=== PATIENT | male | born 1935 | race Caucasian/White ===

== ENCOUNTER → 2021-06-11 08:03 | Outpatient (BNVA) | payer MEDICARE, OTHER, SELFPAY | PROVIDERS: Family Provider Family Medicine; Visit Provider Family Medicine | DX: I65.23 Occlusion and stenosis of bilateral carotid arteries (principal); I10 Essential (primary) hypertension; Z00.00 Encounter for general adult medical examination without abnormal findings; E78.5 Hyperlipidemia, unspecified | CPT/HCPCS: 80053; 80061; 85025 ==

== ENCOUNTER → 2022-06-13 08:09 | Outpatient (BNVA) | payer MEDICARE, OTHER, SELFPAY | PROVIDERS: Family Provider Family Medicine; PCP Family Medicine; Visit Provider Family Medicine | DX: E78.5 Hyperlipidemia, unspecified (principal); I10 Essential (primary) hypertension | CPT/HCPCS: 80053; 80061; 85025 ==

== ENCOUNTER 2023-06-13 07:57 | Outpatient (CLI) | payer MEDICARE, SELFPAY ==
--- NOTE | 2023-06-13 08:02 | XRR_ITS ---
PROCEDURE INFORMATION: Exam: XR Right Knee Exam date and time: 06/13/2023 8:08 AM Age: 87 years old Clinical indication: Pain; Knee; Right; Additional info: Knee pain TECHNIQUE: Imaging protocol: Radiologic exam of the right knee. Views: 1 or 2 views. COMPARISON: No relevant prior studies available. FINDINGS: Bones/joints: Mild tricompartmental joint space narrowing. Thickening and heterogeneity of the patellar tendon. Soft tissues: Thickening of the anterior soft tissues over the patella Vasculature: Scattered foci of calcified atherosclerotic disease. XR/XR knee RT 1-2V 95963 IMPRESSION: 1. No acute or aggressive osseous abnormality. 2. Suggestion of possible patellar tendinosis/tendinitis with possible prepatellar bursitis. Correlate with clinical history and physical exam.
[2023-06-13 08:18] LABS: Basophils # 0.1 10^3/uL (0.0-0.1); Basophils % 0.9 %; Eosinophils # 0.1 10^3/uL (0.0-0.8); Eosinophils % 2.1 %; Hematocrit 43.3 % (37-53); Lymphocytes # 1.9 10^3/uL (0.8-4.8); Mean Corpuscular HGB Conc 32.6 g/dL (30-55); Mean Corpuscular Volume 85.9 fl (82-101); Mean Platelet Volume 9.2 fL (7.4-10.4); Monocytes # 0.5 10^3/uL (0.2-0.9); Monocytes % 7.9 %; Neutrophils % 56.6 %; Nucleated Red Blood Cells % 0 %; Platelet Count 206 10^3/cmm (157-399); Red Blood Count 5.04 10^6/uL (3.85-5.65); Red Cell Distribution Width 13.8 % (12.1-15.1); White Blood Count 5.82 10^3/uL (3.29-11.43)
[2023-06-13 08:40] LABS: Alanine Aminotransferase 12 U/L (0-41); Albumin Level 4.2 g/dL (3.5-5.2); Alkaline Phosphatase 67 U/L (40-130); Anion Gap 13.8 (5-19); Aspartate Amino Transferase 13 U/L (0-40); Blood Urea Nitrogen 21 mg/dL (8-23); Calcium 9.4 mg/dL (8.5-10.5); Carbon Dioxide 27 mmol/L (22-29); Chloride 104 mmol/L (98-107); Cholesterol 159 mg/dL (0-200); Globulin 2.9 g/dL (1.3-4.6); Glucose 94 mg/dL (65-115); HDL Cholesterol 53 mg/dL (60-100); LDL Cholesterol Calculated 92 mg/dL (50-129); LDL HDL Ratio 1.74 RATIO (0.00-3.22); Osmolality Calculated 293 mOsm/kg (285-295); Potassium 4.8 mmol/L (3.5-5.1); Sodium 140 mmol/L (136-145); Total Bilirubin 0.4 mg/dL (0.15-1.2); Total Protein 7.1 g/dL (6.6-8.7); Triglycerides 71 mg/dL (0-150)
== END 2023-06-13 07:58 | disposition home or self-care (01) ==
LOC: LAB 08:00
PROVIDERS: Family Provider Family Medicine; PCP Family Medicine; Visit Provider Family Medicine
DX: M17.11 Unilateral primary osteoarthritis, right knee (principal); I10 Essential (primary) hypertension; E78.5 Hyperlipidemia, unspecified
CPT/HCPCS: 36415; 73560; 80053; 80061; 85025

== ENCOUNTER → 2024-02-08 09:08 | Outpatient (BNVA) | payer MEDICARE, SELFPAY | PROVIDERS: Family Provider Family Medicine; PCP Family Medicine; Visit Provider Family Medicine | DX: R30.0 Dysuria (principal) | CPT/HCPCS: 81000; 87086 ==

== ENCOUNTER → 2024-02-19 13:25 | Outpatient (BNVA) | payer MEDICARE, SELFPAY | PROVIDERS: Family Provider Family Medicine; PCP Family Medicine; Visit Provider Family Medicine | DX: R32 Unspecified urinary incontinence (principal); N41.0 Acute prostatitis | CPT/HCPCS: 81000 ==

== ENCOUNTER → 2024-03-26 10:03 | Outpatient (BNVA) | payer MEDICARE, SELFPAY | PROVIDERS: Family Provider Family Medicine; PCP Family Medicine; Visit Provider Family Medicine | DX: L98.9 Disorder of the skin and subcutaneous tissue, unspecified (principal) | CPT/HCPCS: 88305 ==

== ENCOUNTER → 2024-06-06 09:08 | Outpatient (BNVA) | payer MEDICARE, SELFPAY | PROVIDERS: Family Provider Family Medicine; PCP Family Medicine; Visit Provider Family Medicine | DX: I10 Essential (primary) hypertension (principal); E78.5 Hyperlipidemia, unspecified | CPT/HCPCS: 80053; 80061 ==

== ENCOUNTER → 2024-09-16 15:36 | Outpatient (BNVA) | payer MEDICARE, SELFPAY | PROVIDERS: Family Provider Family Medicine; PCP Family Medicine; Visit Provider Family Medicine | DX: R30.0 Dysuria (principal); R32 Unspecified urinary incontinence | CPT/HCPCS: 81000; 87086 ==

== ENCOUNTER 2024-10-14 13:39 | Emergency (ER) | payer MEDICARE, SELFPAY ==
--- NOTE | 2024-10-14 13:37 | ECG_ITS ---
[facility] Test Date: 2024-10-14 Pat Name: Bayron Ansari Department: Room: Gender: Male Scheduling Coordinator: : 1935 Requested By: Dayana Love Order Number: [id number] Nye MD: Gerard Posey M.D. Measurements Intervals [place]te Rate: 71 P: 47 CT: 157 QRS: 29 QRSD: 89 T: 26 QT: 381 QTc: 417 Interpretive Statements SINUS RHYTHM LOW QRS VOLTAGE IN PRECORDIAL LEADS [QRS DEFLECTION < 1.0 mV IN CHEST LEADS] No previous ECG available for comparison Electronically Signed On 10-16-2024 20:33:26 CDT by Gerard Posey M.D. [email or web address]
[2024-10-14 13:43] VITALS: BP 105/57; PULSE 67; TEMP 36.4; O2SAT 98
[2024-10-14 13:57] LABS: Hematocrit 38.5 % (37-53); Hemoglobin 12.70 g/dL (11.27-16.99); Mean Corpuscular HGB Conc 33.0 g/dL (30-55); Mean Corpuscular Hemoglobin 28.4 pg (27-33); Mean Corpuscular Volume 86.1 fl (82-101); Nucleated Red Blood Cells % 0 %; Platelet Count 212 10^3/cmm (157-399); Red Blood Count 4.47 10^6/uL (3.85-5.65); White Blood Count 6.12 10^3/uL (3.29-11.43)
[2024-10-14 14:16] LABS: Troponin(5th) Baseline 16 ng/L (0-15)
[2024-10-14 14:25] LABS: Alanine Aminotransferase 10 U/L (0-41); Albumin Level 4.4 g/dL (3.5-5.2); Alkaline Phosphatase 78 U/L (40-130); Anion Gap 15.0 (5-19); Aspartate Amino Transferase 13 U/L (0-40); Blood Urea Nitrogen 22 mg/dL (8-23); Calcium 9.3 mg/dL (8.5-10.5); Carbon Dioxide 24 mmol/L (22-29); Chloride 104 mmol/L (98-107); Creatinine Clr Calc Pharmacy 37.3568; Globulin 2.4 g/dL (1.3-4.6); Glucose 102 mg/dL (65-115); Osmolality Calculated 292 mOsm/kg (285-295); Potassium 4.0 mmol/L (3.5-5.1); Sodium 139 mmol/L (136-145); Total Protein 6.8 g/dL (6.6-8.7)
--- NOTE | 2024-10-14 15:42 | ECG_ITS ---
[facility] Test Date: 2024-10-14 Pat Name: Bayron Ansari Department: Room: Gender: Male Principal Engineer: : 1935 Requested By: Dayana Love Order Number: [id number] Popeye MD: Gerard Posey M.D. Measurements Intervals [place] Rate: 61 P: 60 [place]: 175 QRS: 24 QRSD: 99 T: 40 QT: 403 QTc: 409 Interpretive Statements SINUS RHYTHM LOW QRS VOLTAGE IN PRECORDIAL LEADS [QRS DEFLECTION < 1.0 mV IN CHEST LEADS] Compared to ECG 10/14/2024 13:51:36 No significant changes Electronically Signed On 10-16-2024 23:01:34 CDT by Gerard Posey M.D. [email or web address]
[2024-10-14 15:47] VITALS: BP 142/78; PULSE 66; O2SAT 98
--- NOTE | 2024-10-14 16:17 | W.ED.SYNCOPE ---
HPI - Syncope General: Chief Complaint: Syncope Stated Complaint: syncopal episode History of Present Illness: 89-year-old man with a history of BPH, stroke, hypertension and hyperlipidemia who presents emergency room after having a syncopal episode. Related Data Home Medications ?Medication ?Instructions ?Recorded ?Confirmed aspirin 325 mg tablet 325 mg PO DAILY 12/14/21 09/16/24 Previous Rx's ?Medication ?Instructions ?Recorded lisinopril 10 mg tablet 10 mg PO DAILY #90 tabs 12/13/23 atorvastatin 20 mg tablet See Rx Instructions .Route 02/07/24 .COMPLEX #90 tabs tamsulosin 0.4 mg capsule 0.4 mg PO .every other day #30 caps 09/16/24 Allergies Allergy/AdvReac Type Severity Reaction Status Date / Time tamsulosin (From Flomax) Allergy syncope Verified 10/14/24 13:57 beet AdvReac Intermediate Unknown Verified 10/14/24 13:57 venom-wasp AdvReac Intermediate Unknown Verified 10/14/24 13:57 [facility] PFSH: Medical History Hx of completed stroke Osteoarthritis of right knee Hyperlipidemia Hypertension Social History Smoking and tobacco/nicotine status: never used tobacco/nicotine Course Vital Signs: Vital signs: Vital Signs Temperature 97.5 F L 10/14/24 13:43 Pulse Rate 66 10/14/24 15:47 Blood Pressure 142/78 10/14/24 15:47 Pulse Oximetry 98 10/14/24 15:47 Oxygen Delivery Me thod Room Air 10/14/24 15:47 MDM - Syncope Medical Decision Making Medical decision making: Differential diagnosis including but not limited to and based on the above HPI, review of systems and physical exam in this patient with syncope: Vasovagal, orthostatics hypotension, cardiac dysrhythmia, myocardial infarction, infection and hypotension, Orders placed to evaluate differential diagnosis based on the above differential, HPI and physical exam EKG: Time 1351. Rate 71. Normal sinus rhythm, No ST-T changes, no ectopy, normal MT & QRS intervals, This was reviewed and interpreted by the ER physician at 1358 Repeat EKG: Time 1542. Rate 61. Normal sinus rhythm, No ST-T changes, no ectopy, normal MT & QRS intervals, This was reviewed and interpreted by the ER physician at 1548 Lab Review: Laboratory results were reviewed and interpreted by myself the emergency room physician. No leukocytosis. No anemia. Slight elevation of his BUN and creatinine over his baseline at 22 and 1.4 his baseline is normally 0.9-1.4. This would indicate some dehydration. I reviewed the patient's medical record. 89-year-old man with a history of BPH, stroke, hypertension and hyperlipidemia Reexamination: Lab Data 10/14/24 13:31 10/14/24 13:31 Laboratory Results WBC 6.12 10^3/uL (3.29-11.43) 10/14/24 13:31 RBC 4.47 10^6/uL (3.85-5.65) 10/14/24 13:31 Hgb 12.70 g/dL (11.27-16.99) 10/14/24 13:31 Hct 38.5 % (37-53) 10/14/24 13:31 MCV 86.1 fl (82-101) 10/14/24 13:31 MCH 28.4 pg (27-33) 10/14/24 13:31 MCHC 33.0 g/dL (30-55) 10/14/24 13:31 RDW 13.5 % (12.1-15.1) 10/14/24 13:31 Plt Count 212 10^3/cmm (157-399) 10/14/24 13:31 MPV 9.6 fL (7.4-10.4) 10/14/24 13:31 Neut % (Auto) 56.5 % 10/14/24 13:31 Lymph % (Auto) 34.2 % 10/14/24 13:31 Dickson % (Auto) 6.2 % 10/14/24 13:31 Eos % (Auto) 2.1 % 10/14/24 13:31 Baso % (Auto) 0.8 % 10/14/24 13:31 Neut # (Auto) 3.46 10^3/uL (1.8-7.7) 10/14/24 13:31 Lymph # (Auto) 2.1 10^3/uL (0.8-4.8) 10/14/24 13:31 Dickson # (Auto) 0.4 10^3/uL (0.2-0.9) 10/14/24 13:31 Eos # (Auto) 0.1 10^3/uL (0.0-0.8) 10/14/24 13:31 Baso # (Auto) 0.1 10^3/uL (0.0-0.1) 10/14/24 13:31 Nucleated RBC % (auto) 0 % 10/14/24 13:31 Nucleated RBCs # 0.0 /100WBC 10/14/24 13:31 Sodium 139 mmol/L (136-145) 10/14/24 13:31 Potassium 4.0 mmol/L (3.5-5.1) 10/14/24 13:31 Chloride 104 mmol/L (98-107) 10/14/24 13:31 Carbon Dioxide 24 mmol/L (22-29) 10/14/24 13:31 Anion Gap 15.0 (5-19) 10/14/24 13:31 BUN 22 mg/dL (8-23) 10/14/24 13:31 Creatinine 1.4 mg/dL (0.7-1.2) H 10/14/24 13:31 GFR Calculation Not Reportable 10/14/24 13:31 Glucose 102 mg/dL (65-115) 10/14/24 13:31 Calculated Osmolality 292 mOsm/kg (285-295) 10/14/24 13:31 Calcium 9.3 mg/dL (8.5-10.5) 10/14/24 13:31 Total Bilirubin 0.5 mg/dL (0.15-1.2) 10/14/24 13:31 AST 13 U/L (0-40) 10/14/24 13:31 ALT 10 U/L (0-41) 10/14/24 13:31 Alkaline Phosphatase 78 U/L (40-130) 10/14/24 13:31 Troponin T Baseline 16 ng/L (0-15) H 10/14/24 13:31 Total Protein 6.8 g/dL (6.6-8.7) 10/14/24 13:31 Albumin 4.4 g/dL (3.5-5.2) 10/14/24 13:31 Globulin 2.4 g/dL (1.3-4.6) 10/14/24 13:31 Discharge Plan Discharge Condition: Stable Prescriptions: No Action lisinopril 10 mg tablet 10 mg PO DAILY Qty: 90 3RF lidocaine (PF) 10 mg/mL (1 %) solution 10 mg SUBCUT ONCE Qty: 1 0RF tamsulosin 0.4 mg capsule 0.4 mg PO .every other day Qty: 30 11RF aspirin 325 mg tablet 325 mg PO DAILY atorvastatin 20 mg tablet See Rx Instructions .ROUTE .COMPLEX Qty: 90 3RF Dose Instruction: TAKE 1 TABLET BY MOUTH EVERY DAY Rx Instructions: TAKE 1 TABLET BY MOUTH EVERY DAY Referrals: Trae Vogt MD [Primary Care Provider, Family Practice] Print Language: Greek Coding Level of Care Code ED Filament Welder for Silvana Andrade
[2024-10-14 16:26] LABS: Troponin 5 2HR 14.43 ng/L (0-15); Troponin 5 2HR Delta -1.57 ABS# (0-10)
== END 2024-10-14 17:13 | disposition left against medical advice (07) ==
PROVIDERS: Emergency Provider Emergency Medicine; PCP Family Medicine
DX: Z01.89 Encounter for other specified special examinations (principal); Z53.21 Procedure and treatment not carried out due to patient leaving prior to being seen by health care provider; R94.31 Abnormal electrocardiogram [ECG] [EKG]
CPT/HCPCS: 80053; 84484; 85025; 93005

== ENCOUNTER → 2025-01-23 07:45 | Outpatient (BNVA) | payer MEDICARE, SELFPAY | PROVIDERS: PCP Family Medicine; Visit Provider Family Medicine | DX: N41.0 Acute prostatitis (principal); R32 Unspecified urinary incontinence; I10 Essential (primary) hypertension | CPT/HCPCS: 80053; 81000; 85025 ==

== ENCOUNTER → 2025-01-24 12:54 | Outpatient (BNVA) | payer MEDICARE, SELFPAY | PROVIDERS: PCP Family Medicine; Visit Provider Family Medicine | DX: R32 Unspecified urinary incontinence (principal) | CPT/HCPCS: 87086 ==

== ENCOUNTER 2025-01-29 12:52 | Outpatient (CLI) | payer MEDICARE, SELFPAY ==
--- NOTE | 2025-01-29 16:30 | US_ITS ---
WS: [id number] RENAL ULTRASOUND URINARY BLADDER ULTRASOUND HISTORY: elevated Cr COMPARISON: None available. TECHNIQUE: 2-D and color Doppler imaging of the kidney submitted. Right kidney: 12.2 cm x 5.9 cm x 5.8 cm. Normal size kidney. Mild hydronephrosis. Renal pelvis is mildly dilated. No solid mass. Left kidney: 11.4 cm x 5.4 cm x 6.0 cm. Normal size kidney with moderate to severe hydronephrosis. Aorta: Mild atherosclerosis aorta. Mild ectasia. Urinary Bladder: Well-distended urinary bladder. There is mild wall thickening and irregularity. There is a small protrusion extending into the bladder which is probably related to the prostate gland. Prostate is slightly heterogeneous. Prevoid volume: 824 mL. Post void volume: 742 mL. US/US renal BI w/PV bladder 23590 IMPRESSION: 1. Moderate to severe LEFT and mild RIGHT hydronephrosis. 2. Large amount of post void residual remains in the urinary bladder. 3. Bladder wall irregularity and prostate gland encroachment into the bladder. 4. Hydronephrosis may improve with better voiding and emptying of the urinary bladder. 5. Recommend additional evaluation of the kidneys to determine cause of the hy dronephrosis. Cystoscopy of the urinary bladder may be necessary also. 6. Cause of the hydronephrosis is probably not secondary to a stone. Probably the most beneficial additional imaging study would be CT abdomen and pelvis wit h IV contrast, portal venous and additional delayed imaging (10 to 15 minutes) through the ureters and bladder.
== END 2025-01-29 12:53 | disposition home or self-care (01) ==
LOC: RAD 12:53
PROVIDERS: PCP Family Medicine; Visit Provider Family Medicine
DX: R79.89 Other specified abnormal findings of blood chemistry (principal); N13.39 Other hydronephrosis; R93.41 Abnormal radiologic findings on diagnostic imaging of renal pelvis, ureter, or bladder
CPT/HCPCS: 76770; 76857